=== PATIENT | male | born 2005 | race Caucasian/White ===

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

== ENCOUNTER 2024-08-11 07:31 | Emergency (ER) | payer BC, OTHER, SELFPAY ==
[2024-08-11] MEDS ORDERED: Lidocaine 1% PF 5 ML VIAL ONE (07:47)
[2024-08-11] MEDS ORDERED: Bacitracin 1 PK ONE (08:10)
[2024-08-11] MEDS ORDERED: Ibuprofen 800 MG TAB ONE (08:11)
== END 2024-08-11 08:26 | disposition home or self-care (01) ==
LOC: MADERS 07:31
DX: S60.312A Abrasion of left thumb, initial encounter (principal); F17.290 Nicotine dependence, other tobacco product, uncomplicated; W31.1XXA Contact with metalworking machines, initial encounter
CPT/HCPCS: 64450; 99283